=== PATIENT | female | born 1980 | race Two or more races ===

== ENCOUNTER 2024-03-19 12:06 | Outpatient (CLI) | payer OTHER | END 2024-03-19 12:21 | disposition home or self-care (01) | LOC: RAD 12:06 | PROVIDERS: ATTEND Physical Medicine & Rehabilitation | DX: M54.2 Cervicalgia (principal); M54.6 Pain in thoracic spine ==

== ENCOUNTER 2024-04-07 10:34 | Outpatient (CLI) | payer OTHER | END 2024-04-07 10:36 | disposition home or self-care (01) | LOC: MAMO-SONO 10:34 | PROVIDERS: ATTEND Obstetrics & Gynecology | DX: R10.2 Pelvic and perineal pain (principal); D25.9 Leiomyoma of uterus, unspecified; N64.4 Mastodynia; Z12.31 Encounter for screening mammogram for malignant neoplasm of breast ==

== ENCOUNTER 2024-05-02 11:47 | Emergency (ER) | payer OTHER ==
[~2024-05-02] VITALS: Ht 160 cm; Wt 92.1 kg
[2024-05-02] MEDS ORDERED: FAMOTIDINE40 MG (12:21)
[2024-05-02] MEDS ORDERED: FAMOTIDINE/PF 20 MG/2 ML VIAL ONE (12:39)
[2024-05-02] MEDS ORDERED: BARIUM SULFATE 450 ML ORAL.SUSP PO ONE (12:40)
[2024-05-02] MEDS ORDERED: FAMOtidine 10 MG/ML (4ML VIAL) IV ONE (12:45)
[2024-05-02] MEDS ORDERED: 0.9 % SODIUM CHLORIDE 1,000 ML IV ONE (12:45)
[2024-05-02 13:31] LABS: HEMATOCRIT 41.3 % (36.0-45.00); HEMOGLOBIN 13.6 g/dL (12.0-15.00); MEAN CELL VOLUME 85.7 fL (80.00-100.00); MEAN CORPUSCULAR HEMOGLOBIN 28.2 pg (27.00-32.0); MEAN CORPUSCULAR HGB CONC 32.9 g/dl (32.0-36.0); PLATELET COUNT 322 K/uL (150-450); RED BLOOD COUNT 4.81 M/uL (4.00-6.00); RED CELL DISTRIBUTION WIDTH 13.4 % (11.5-14.5)
[2024-05-02 14:00] LABS: ALBUMIN 3.5 gm/dL (3.4-5.0); ALKALINE PHOSPHATASE 70 U/L (50-136); ALT/SGPT 14 U/L (12-78); ANION GAP 10 (10.0-20.0); AST/SGOT 15 U/L (15-37); BILIRUBIN TOTAL 0.41 mg/dL (0.3-1.2); BLOOD UREA NITROGEN 8 mg/dL (7-18); BUN CREA RATIO 16 (7.0-25.0); CALCIUM 9.5 mg/dL (8.5-10.1); CARBON DIOXIDE 28 mEq/L (21-32); CHLORIDE 109 mmol/L (98-107); CREATININE SERUM 0.49 mg/dL (0.55-1.02); GFR 139.17; GLOBULINA 3.4 G/DL (2.4-3.5); GLUCOSE FASTING 89 mg/dL (65-100); OSMOLALITY SERUM 283 MOSM/KG (275-295); POTASSIUM 3.83 mEq/L (3.5-5.1); SODIUM 143 mmol/L (136-145); TOTAL PROTEIN 6.9 gm/dL (6.4-8.2)
[2024-05-02 14:02] LABS: HCG QUANTITATIVE < 1 mUI/mL (1-3)
[2024-05-02 15:25] LABS: PH,URINE 5.5 (5.0-8.0); URINE APPEARANCE Clear; URINE BILIRRUBIN Negative (NEGATIVE); URINE BLOOD Small; URINE COLOR Yellow; URINE GLUCOSE Negative (NEGATIVE); URINE KETONE Negative (NEGATIVE); URINE LEUKOCYTE Negative; URINE NITRATE Negative; URINE PROTEIN Negative (NEGATIVE); URINE UROBILINOGEN 0.2 E.U./dl
[2024-05-02 15:30] LABS: URINE BACTERIA 112.1 uL (0.0-1933); URINE EPITHELIAL CELLS 17.3 uL (0.0-38.8); URINE RBC 47.3 uL (0.0-20.8); URINE WBC 5.5 uL (0.0-23.2)
== END 2024-05-02 19:37 | disposition home or self-care (01) ==
LOC: ER 11:48
PROVIDERS: General Practice
DX: R14.0 Abdominal distension (gaseous) (principal); K59.00 Constipation, unspecified; D25.9 Leiomyoma of uterus, unspecified

== ENCOUNTER 2024-06-01 07:15 | Outpatient (CLI) | payer OTHER ==
[~2024-06-01 07:15] MED LIST: FAMOTIDINE40 MG
== END 2024-06-01 07:28 | disposition home or self-care (01) ==
LOC: TOM 07:15
DX: K56.600 Partial intestinal obstruction, unspecified as to cause (principal)